=== PATIENT | male | born 1950 | race Caucasian/White ===

== ENCOUNTER → 2017-05-01 | Outpatient (CLI) | payer MEDICARE, OTHER ==
[~2017-05-01] MED LIST: CATHETER FLUSH 10 ML SYR IV PRN; REGADENOSON 0.4 MG/5 ML SYR (LEXISCAN) IV ONE
[2017-05-01 09:51] VITALS: BP 147/77
[2017-05-01 10:01] VITALS: BP 129/77
--- NOTE | 2017-05-01 14:21 | STRESS TEST ---
DATE OF SERVICE: 05/01/2017 NUCLEAR STRESS TEST REPORT PRIMARY PHYSICIAN: Salome ____ PERFORMING PHYSICIAN Yanelis Cruz M.D. REASON FOR EXAMINATION: Chest pain, hypertension, hyperlipidemia, chronic kidney disease. PROCEDURE DETAILS: The patient was brought to the stress lab after informed consent was taken. Lexiscan stress test was performed according to the protocol. A 0.4 mg of IV Lexiscan was given. Low-grade exercise was performed. Initial rhythm was sinus rhythm at 75 BPM and blood pressure 147/77 mmHg. Maximum heart rate was 144 BPM and blood pressure was 165/66 mmHg. A 10.5 mCi of Myoview were given for rest imaging and 29.9 mCi of Myoview were given for stress imaging. TID 0.9, ejection fraction 75%. Normal stress and rest perfusion imaging. Normal wall motion. IMPRESSION AND CONCLUSION: 1. Pharmacological stress test negative for ischemia. 2. Normal perfusion stress and rest. 3. Normal LV function with no wall motion abnormalities. Job ID: [id number] DocumentID: [id number] Dictated Date: 05/01/2017 11:38:12 Strategic Planning Analyst Date: 05/01/2017 12:31:53 Dictated By: YANELIS CRUZ MD
== END ==
LOC: CARD 08:12
PROVIDERS: ATTEND Internal Medicine Interventional Cardiology
DX: I12.9 Hypertensive chronic kidney disease with stage 1 through stage 4 chronic kidney disease, or unspecified chronic kidney disease (principal); N18.9 Chronic kidney disease, unspecified; E78.5 Hyperlipidemia, unspecified; R07.9 Chest pain, unspecified
CPT/HCPCS: 78452; 93017

== ENCOUNTER → 2017-05-06 | Outpatient (CLI) | payer MEDICARE, OTHER | LOC: CARD 10:32 → EDUNIT# 11:00 | PROVIDERS: ATTEND Internal Medicine Interventional Cardiology | DX: I12.9 Hypertensive chronic kidney disease with stage 1 through stage 4 chronic kidney disease, or unspecified chronic kidney disease (principal); N18.9 Chronic kidney disease, unspecified; E78.5 Hyperlipidemia, unspecified; R07.9 Chest pain, unspecified | CPT/HCPCS: 93306 ==

== ENCOUNTER → 2017-07-29 | Outpatient (CLI) | payer MEDICARE, OTHER ==
--- NOTE | 2017-07-29 11:13 | Diagnostic Imaging Report ---
INDICATION: Chronic kidney disease. TECHNIQUE: Multiple Real-time grayscale images were obtained over the kidneys in various projections bilaterally. FINDINGS: The right kidney measures 7.8 x 4.1 x 3.2 cm. The left kidney measures 12.1 x 5.6 x 6 cm. Both kidneys grossly demonstrate normal renal cortical thickness and echogenicity. There is a small left renal cyst. There is no hydronephrosis. Bilateral ureteral jets are seen within the bladder. The bladder is normal in appearance. The IVC is not imaged. IMPRESSION: Small left renal cyst; otherwise, unremarkable renal ultrasound. Dictated by: Dictated on workstation # [id number]
== END ==
LOC: RAD 08:22
PROVIDERS: ATTEND Internal Medicine Nephrology
DX: I12.9 Hypertensive chronic kidney disease with stage 1 through stage 4 chronic kidney disease, or unspecified chronic kidney disease (principal); N18.3 Chronic kidney disease, stage 3 (moderate); R80.8 Other proteinuria; N28.1 Cyst of kidney, acquired
CPT/HCPCS: 76770